=== PATIENT | female | born 1985 | race Caucasian/White ===

== ENCOUNTER 2017-12-23 14:34 | Emergency (ER) | payer MEDICAID | END 2017-12-23 15:13 | disposition home or self-care (01) | LOC: E/R 15:13 | DX: O99.89 Other specified diseases and conditions complicating pregnancy, childbirth and the puerperium (principal); E66.9 Obesity, unspecified; R21 Rash and other nonspecific skin eruption; Z3A.26 26 weeks gestation of pregnancy | CPT/HCPCS: 99283; Z7502 ==

== ENCOUNTER 2018-04-01 19:18 | Outpatient (CLI) | payer MEDICAID | END 2018-04-01 22:27 | disposition home or self-care (01) | LOC: OBT 19:18 → L-D 19:20 → OBT 22:27 | DX: O36.8330 Maternal care for abnormalities of the fetal heart rate or rhythm, third trimester, not applicable or unspecified (principal); O41.8X30 Other specified disorders of amniotic fluid and membranes, third trimester, not applicable or unspecified; Z3A.40 40 weeks gestation of pregnancy | CPT/HCPCS: 76815; 76818 ==

== ENCOUNTER 2018-04-04 09:01 | Inpatient (IN) | payer MEDICAID ==
[2018-04-04 09:53] LABS: ADD MAN DIFF? NO
[2018-04-04 09:58] LABS: WHITE BLOOD COUNT 9.9 10^3/ul (4.8-10.8)
[2018-04-04 09:58] LABS: BASOPHILS % 0.3 % (0.0-2.0); EOSINOPHILS % 0.4 % (0.0-7.0); HEMATOCRIT 36.8 % (37.0-47.0); HEMOGLOBIN 12.3 g/dl (12.0-16.0); LYMPHOCYTES # 1.6 10^3/ul (0.8-2.9); LYMPHOCYTES % 15.6 % (15.0-51.0); MEAN CORPUSCULAR HEMOGLOBIN 31.5 pg (29.0-33.0); MEAN CORPUSCULAR HGB CONC 33.4 g/dl (32.0-37.0); MEAN CORPUSCULAR VOLUME 94.4 fl (82.0-101.0); MEAN PLATELET VOLUME 10.5 fl (7.4-10.4); MONOCYTE # 0.6 10^3/ul (0.3-0.9); MONOCYTES % 5.7 % (0.0-11.0); NEUTROPHIL # 7.6 10^3/ul (1.6-7.5); NEUTROPHILS % 76.8 % (39.0-77.0); PLATELET COUNT 250 10^3/UL (140-415); RED CELL DISTRIBUTION WIDTH 14.4 % (11.5-14.5)
[2018-04-04] MEDS: LACTATED RINGER'S 1,000 ML IV* ×2 (09:58→13:30)
[2018-04-04] MEDS ORDERED: IBUPROFEN 600 MG TAB PO (10:00)
[2018-04-04] MEDS ORDERED: LIDOCAINE 1% (MPF) 30 ML INJ INJ (10:00)
[2018-04-04] MEDS ORDERED: CARBOPROST 250 MCG INJ IM (10:00)
[2018-04-04] MEDS ORDERED: MISOPROSTOL 200 MCG TAB PR (10:00)
[2018-04-04] MEDS ORDERED: OXYTOCIN 30 UNITS/LR 500 ML IV (10:00)
[2018-04-04] MEDS ORDERED: ACETAMINOPHEN/CODEINE #3 TAB PO (10:00)
[2018-04-04 10:17] LABS: INR 0.88; PT RATIO 0.9
[2018-04-04 10:18] LABS: PARTIAL THROMBOPLASTIN TIME 26.5 Sec (25.0-35.0)
[2018-04-04] MEDS: DINOPROSTONE 10 MG VAG SUPP VAG (11:58)
[2018-04-04 15:17] LABS: RAPID PLASMA REAGIN NONREACTIVE (NR)
[2018-04-04] MEDS: BUTORPHANOL 2 MG INJ IV ×2 (20:46→23:19)
[2018-04-05] MEDS ORDERED: FENTAnyl 2MCG/ML-ROPIV 0.2% 100 ML (01:05)
[2018-04-05] MEDS ORDERED: NALOXONE (0.4 MG/ML) INJ IV ×2 (02:00→23:30)
[2018-04-05] MEDS: LACTATED RINGER'S 1,000 ML IV ×2 (07:01→23:12)
[2018-04-05] MEDS: LACTATED RINGER'S 1,000 ML IV* ×3 (07:02→18:44)
[2018-04-05] MEDS: FENTAnyl 2MCG/ML-ROPIV 0.2% 100 ML BAG EPI ×2 (08:41→16:50)
[2018-04-05] MEDS: OXYTOCIN 30 UNITS/LR 500 ML IV ×2 (09:50→19:57)
[2018-04-05] MEDS ORDERED: CEFAZOLIN 2 GM/50 ML (PMX) 50 ML IVPB (21:13)
[2018-04-05] MEDS: CEFAZOLIN 2 GM/50 ML (PMX) 50 ML IV (21:25)
[2018-04-05] MEDS ORDERED: METHYLERGONOVINE 0.2 MG INJ IM ×2 (21:30→23:00)
[2018-04-05] MEDS ORDERED: CARBOPROST 250 MCG INJ IM ×2 (21:30→23:00)
[2018-04-05] MEDS ORDERED: MISOPROSTOL 200 MCG TAB PR ×2 (21:30→23:00)
[2018-04-05] MEDS ORDERED: OXYTOCIN 30 UNITS/LR 500 ML IV ×3 (21:30→23:00)
[2018-04-05] MEDS ORDERED: METHYLERGONOVINE 0.2 MG TAB PO (23:00)
[2018-04-05] MEDS ORDERED: MIDAZOLAM 1 MG/ML 2 ML INJ IV (23:30)
[2018-04-05] MEDS ORDERED: EPHEDrine SULFATE 50 MG/5 ML SYG IV (23:30)
[2018-04-05] MEDS ORDERED: ONDANSETRON 4 MG INJ IV (23:30)
[2018-04-05] MEDS ORDERED: DIPHENHYDRAMINE 50 MG INJ IV ×2 (23:30)
[2018-04-05] MEDS: ONDANSETRON 4 MG INJ IV (23:30)
[2018-04-05] MEDS ORDERED: HYDROmorphONE 0.5 MG/0.5 ML SYG IV (23:30)
[2018-04-05] MEDS ORDERED: MEPERIDINE 25 MG INJ IV (23:30)
[2018-04-05] MEDS ORDERED: NALBUPHINE HCL (10 MG/1 ML) INJ IV (23:30)
[2018-04-05] MEDS ORDERED: ZOLPIDEM 5 MG TAB PO (23:30)
[2018-04-06] MEDS: OXYTOCIN 30 UNITS/LR 500 ML IV ×2 (00:51→00:52)
[2018-04-06] MEDS: METHYLERGONOVINE 0.2 MG INJ IM (00:54)
[2018-04-06] MEDS: HYDROmorphONE 0.5 MG/0.5 ML SYG IV ×3 (01:07→18:11)
[2018-04-06] MEDS: ONDANSETRON 4 MG INJ IV (03:45)
[2018-04-06] MEDS: DEXTROSE 5%-LR 1,000 ML IV ×3 (04:57→18:11)
[2018-04-06] MEDS: AMPICILLIN 1 GM/NS (PMX) 50 ML IVPB ×3 (05:52→18:10)
[2018-04-06] MEDS: ACETAMINOPHEN 325 MG TAB PO ×3 (05:52→18:20)
[2018-04-06] MEDS ORDERED: CEFAZOLIN 2 GM/50 ML (PMX) 50 ML IVPB (06:00)
[2018-04-06] MEDS: CLINDAMYCIN 900 MG/D5W (PMX) 50 ML IVPB ×3 (06:27→21:35)
[2018-04-06] MEDS: LANOLIN 7 GM TUBE TOP (06:28)
[2018-04-06 07:04] LABS: HEMATOCRIT 32.6 % (37.0-47.0); HEMOGLOBIN 10.7 g/dl (12.0-16.0); MEAN CORPUSCULAR HEMOGLOBIN 31.1 pg (29.0-33.0); MEAN CORPUSCULAR HGB CONC 32.8 g/dl (32.0-37.0); MEAN CORPUSCULAR VOLUME 94.8 fl (82.0-101.0); MEAN PLATELET VOLUME 10.7 fl (7.4-10.4); PLATELET COUNT 196 10^3/UL (140-415); RED BLOOD COUNT 3.44 10^6/ul (4.20-5.40); RED CELL DISTRIBUTION WIDTH 14.6 % (11.5-14.5)
[2018-04-06 07:14] LABS: ADD MAN DIFF? YES; POSITIVE DIFF @See below
[2018-04-06] MEDS: GENTAMICIN 80 MG/NS (PMX) 50 ML IVPB ×3 (08:22→23:40)
[2018-04-06] MEDS: SENNA/DOCUSATE NA (8.6MG/50MG) TAB PO ×2 (09:26→21:35)
[2018-04-06 10:05] LABS: ANISOCYTOSIS 1+ (0-0); BAND NEUTROPHILS #M 3.4 10^3/ul (0.0-0.6); BAND NEUTROPHILS % (M) 23 % (0-4); LYMPHOCYTES #M 1.9 10^3/ul (0.8-2.9); LYMPHOCYTES % (M) 13 % (15-51); MONOCYTE #M 0.9 10^3/ul (0.3-0.9); MONOCYTES % (M) 6 % (0-11); PLATELET ESTIMATE NORMAL; POLYCHROMASIA 1+ (0-0); REACTIVE LYMPHOCYTES #M 0.1 10^3/ul (0.0-0.0); REACTIVE LYMPHOCYTES% (M) 1 % (0-0); SEG NEUT #M 9.1 10^3/ul (1.6-7.5); SEGMENTED NEUTROPHILS (M) % 57 % (39-77); SMUDGE%M 1 % (0-0)
[2018-04-06] MEDS: IBUPROFEN 800 MG TAB PO (21:35)
[2018-04-06] MEDS: HYDROCODONE/APAP (5/325) TAB PO (22:16)
[2018-04-07] MEDS: AMPICILLIN 1 GM/NS (PMX) 50 ML IVPB (00:46)
[2018-04-07] MEDS: HYDROCODONE/APAP (5/325) TAB PO ×4 (04:57→21:35)
[2018-04-07] MEDS: IBUPROFEN 800 MG TAB PO ×3 (05:31→21:35)
[2018-04-07] MEDS: SENNA/DOCUSATE NA (8.6MG/50MG) TAB PO ×2 (09:27→21:35)
[2018-04-07] MEDS: MAGNESIUM HYDROXIDE 30ML CUP PO ×2 (09:27→21:36)
[2018-04-08] MEDS: HYDROCODONE/APAP (5/325) TAB PO ×2 (01:57→05:30)
[2018-04-08] MEDS: IBUPROFEN 800 MG TAB PO (05:31)
[2018-04-08 08:51] LABS: ADD MAN DIFF? NO
[2018-04-08 09:01] LABS: BASOPHILS % 0.3 % (0.0-2.0); EOSINOPHILS # 0.3 10^3/ul (0.0-0.5); EOSINOPHILS % 2.7 % (0.0-7.0); HEMATOCRIT 31.2 % (37.0-47.0); HEMOGLOBIN 10.3 g/dl (12.0-16.0); LYMPHOCYTES # 1.8 10^3/ul (0.8-2.9); MEAN CORPUSCULAR HEMOGLOBIN 31.4 pg (29.0-33.0); MEAN CORPUSCULAR VOLUME 95.1 fl (82.0-101.0); MONOCYTE # 0.6 10^3/ul (0.3-0.9); MONOCYTES % 5.6 % (0.0-11.0); NEUTROPHIL # 7.2 10^3/ul (1.6-7.5); NEUTROPHILS % 72.6 % (39.0-77.0); PLATELET COUNT 264 10^3/UL (140-415); RED BLOOD COUNT 3.28 10^6/ul (4.20-5.40); RED CELL DISTRIBUTION WIDTH 14.6 % (11.5-14.5)
[2018-04-08] MEDS: MEASLES,MUMPS,RUBELLA VACCINE INJ SC* (09:15)
[2018-04-08] MEDS: SENNA/DOCUSATE NA (8.6MG/50MG) TAB PO (09:21)
[2018-04-08] MEDS: DIPHTH/TET/ACEL PERTUSS (ADULT) 0.5 ML VIAL IM* (11:02)
== END 2018-04-08 12:30 | disposition home or self-care (01) | DRG 766 ==
LOC: L-D 09:01 → PP1 04-06 01:48 → L-D 04-05 22:56
PROVIDERS: Obstetrics & Gynecology
PROC: 10D00Z1 Extraction of Products of Conception, Low, Open Approach (ICD-10-PCS; principal; 2018-04-05 21:45)
PROC: 3E033VJ Introduction of Other Hormone into Peripheral Vein, Percutaneous Approach (ICD-10-PCS; 2018-04-05 21:45)
DX: O48.0 Post-term pregnancy (principal); Z3A.40 40 weeks gestation of pregnancy; O62.1 Secondary uterine inertia; Z37.0 Single live birth
CPT/HCPCS: 62319; 76815; 85025; 85610; 85730; 86592; 86850; 86900; 86901; 90715; 99464

== ENCOUNTER 2018-05-05 11:18 | Emergency (ER) | payer MEDICAID | END 2018-05-05 14:37 | disposition home or self-care (01) | LOC: FTE 11:18 | DX: O87.2 Hemorrhoids in the puerperium (principal); O99.285 Endocrine, nutritional and metabolic diseases complicating the puerperium; E66.9 Obesity, unspecified | CPT/HCPCS: 99283; Z7502 ==